=== PATIENT | female | born 1990 | race Caucasian/White ===

== ENCOUNTER 2016-05-13 17:45 | Emergency (ER) | payer OTHER ==
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
[~2016-05-13 17:45] MED LIST: ALBUTEROL17 GM INH; BENZONATATE PO; FLONASE16 GM; IBUPROFEN800 MG PO; NAPROSYN375 MG PO; TESSALON200 MG PO; VIBRAMYCIN100 M1 PO; ZITHROMAX PO
== END 2016-05-13 19:00 | disposition home or self-care (01) ==
LOC: CFTX 17:45
DX: S90.31XA Contusion of right foot, initial encounter (principal); J45.909 Unspecified asthma, uncomplicated; F17.210 Nicotine dependence, cigarettes, uncomplicated; Z88.2 Allergy status to sulfonamides; Z91.040 Latex allergy status; V03.09XA Pedestrian with other conveyance injured in collision with car, pick-up truck or van in nontraffic accident, initial encounter; Y92.009 Unspecified place in unspecified non-institutional (private) residence as the place of occurrence of the external cause
CPT/HCPCS: 29540; 73630; 99283